=== PATIENT | female | born 1970 | race Caucasian/White ===

== ENCOUNTER → 2022-10-31 | Day surgery (SDC) | payer OTHER | END | disposition home or self-care (01) | LOC: FMAMMOTONE 12:31 | PROVIDERS: ATTEND Family Medicine Geriatric Medicine | PROC: 0HBT3ZX Excision of Right Breast, Percutaneous Approach, Diagnostic (ICD-10-PCS; principal; 2022-10-31) | DX: D05.91 Unspecified type of carcinoma in situ of right breast (principal); N64.1 Fat necrosis of breast; N64.89 Other specified disorders of breast | CPT/HCPCS: 19081; 76098-TC-FY; 87899; 88305-TC; 88341-TC; 88342-TC; A4648 ==

== ENCOUNTER 2022-12-29 04:29 | Day surgery (SDC) | payer OTHER ==
[2022-12-27 14:46] VITALS: BMI 31.6
[2022-12-29] MEDS ORDERED: LIDOCAINE HCL 1%, 10 MG/ML (20ML VIAL) ONE (10:34)
[2022-12-29] MEDS ORDERED: PROPOFOL 20 ML ONE ×2 (10:57→11:06)
[2022-12-29] MEDS ORDERED: ceFAZolin SODIUM 1 GM VIAL IVPB ONE (11:00)
[2022-12-29] MEDS ORDERED: BUPIVACAINE HCL/PF 0.5% (5MG/ML) 10 ML VIAL IJ ONE (11:26)
[2022-12-29] MEDS ORDERED: DEXAMETHASONE SOD PHOSPHATE 4 MG/1 ML VIAL ONE (12:21)
[2022-12-29] MEDS ORDERED: ONDANSETRON 4 MG/2 ML VIAL ONE (12:21)
[2022-12-29] MEDS ORDERED: KETOROLAC TROMETHAMINE 30 MG/1 ML VIAL ONE (12:21)
[2022-12-29] MEDS ORDERED: ONDANSETRON 4 MG/2 ML VIAL IVPUSH PRN (12:51)
[2022-12-29] MEDS ORDERED: oxyCODONE HCL 5 MG TABLET PO PRN (12:51)
[2022-12-29] MEDS ORDERED: LACTATED RINGERS SOLUTION 1,000 ML IV SCH (13:00)
[2022-12-29] MEDS ORDERED: ACETAMINOPHEN INJECTION 100 ML IVPB ONE (13:24)
[2022-12-29] MEDS ORDERED: ACETAMINOPHEN 1000 MG/100 ML BAG IVPB ONE (13:27)
[2022-12-29 16:56] VITALS: RESP 20
[2022-12-29 17:21] VITALS: PULSE 68
[2022-12-29 18:25] VITALS: BP 100/60; TEMP 97.8
== END 2022-12-29 18:26 | disposition home or self-care (01) ==
LOC: JASU-SURG 04:29
PROVIDERS: ATTEND Surgery
PROC: 0HBT0ZZ Excision of Right Breast, Open Approach (ICD-10-PCS; principal; 2022-12-29 10:15)
DX: D05.11 Intraductal carcinoma in situ of right breast (principal)
CPT/HCPCS: 19281; 76098-TC-FY; 88307-TC; 94760